=== PATIENT | female | born 1980 | race Caucasian/White ===

== ENCOUNTER 2022-06-28 07:25 | Emergency (ER) | payer BC | END 2022-06-28 08:55 | disposition home or self-care (01) | LOC: DL.ED 07:25 | DX: S93.402A Sprain of unspecified ligament of left ankle, initial encounter (principal); F17.210 Nicotine dependence, cigarettes, uncomplicated; X50.1XXA Overexertion from prolonged static or awkward postures, initial encounter | CPT/HCPCS: 73610-LT; 99282; 99283 ==

== ENCOUNTER 2022-09-14 06:16 | Emergency (ER) | payer BC ==
[2022-09-14] MEDS: Ondansetron 4 MG/2 ML SDV IVPUSH ONE (06:44)
[2022-09-14] MEDS: Aspirin 81 MG Tab.Chew PO ONE (06:46)
[2022-09-14] MEDS: Nitroglycerin 0.4 MG Tab.SL SL ONE (06:47)
[2022-09-14] MEDS: Sodium Chloride 0.9% 1,000 ML IV ONE (06:48)
[2022-09-14 07:00] LABS: ANION GAP 15.4 mEq/L (7-13)
[2022-09-14] MEDS: Heparin Sodium/0.45% NaCl 25,000 UNITS/500 ML BAG IV SCH (07:17)
[2022-09-14] MEDS: Heparin Sodium 5,000 Units/ML Vial IVPUSH ONE (07:17)
== END 2022-09-14 08:30 ==
LOC: DL.ED 06:16
DX: I21.4 Non-ST elevation (NSTEMI) myocardial infarction (principal); Z79.899 Other long term (current) drug therapy; Z20.822 Contact with and (suspected) exposure to COVID-19
CPT/HCPCS: 36415; 71045; 80053; 82150; 83690; 83735; 84484; 85025; 85379; 85610; 87635; 93005; 96361; 96365; 96375; 96376; 99285; A9270; J1644; J2405; J7030; U0002

== ENCOUNTER 2022-09-16 07:16 | Emergency (ER) | payer BC | END 2022-09-16 08:33 | disposition home or self-care (01) | LOC: DL.ED 07:16 | DX: N39.0 Urinary tract infection, site not specified (principal); F17.210 Nicotine dependence, cigarettes, uncomplicated; Z79.899 Other long term (current) drug therapy | CPT/HCPCS: 74176; 81001; 87086; 87088; 87186; 99284 ==

== ENCOUNTER 2022-09-18 09:12 | Emergency (ER) | payer BC ==
[2022-09-18 10:47] LABS: ANION GAP 14.5 mEq/L (7-13); CHLORIDE,CL 104 mmol/L (98-107); SODIUM,NA 138 mmol/L (136-145)
[2022-09-18 10:48] LABS: ESTIMATED GFR 92 mL/min (>=60)
== END 2022-09-18 12:22 | disposition home or self-care (01) ==
LOC: DL.ED 09:12
DX: K83.9 Disease of biliary tract, unspecified (principal); F17.210 Nicotine dependence, cigarettes, uncomplicated; Z91.040 Latex allergy status; Z88.8 Allergy status to other drugs, medicaments and biological substances; Z79.899 Other long term (current) drug therapy; Z20.822 Contact with and (suspected) exposure to COVID-19
CPT/HCPCS: 36415; 74019; 80053; 80307; 82150; 83605; 83690; 83735; 84484; 84703; 85025; 86140; 93005; 99284; U0002

== ENCOUNTER 2022-09-21 13:40 | Emergency (ER) | payer BC ==
[2022-09-21] MEDS ORDERED: Acetaminophen/HYDROcodone 325-10 MG Tab PO ONE (13:41)
[2022-09-21] MEDS ORDERED: Ondansetron 4 MG Tab.DIS PO ONE (13:41)
[2022-09-21] MEDS ORDERED: Sodium Chloride 0.9% 10 ML Syringe FLUSH PRN (15:55)
[2022-09-21] MEDS: Sodium Chloride 0.9% 1,000 ML IV ONE (16:08)
[2022-09-21] MEDS: Ondansetron 4 MG/2 ML SDV IV ONE (16:09)
[2022-09-21] MEDS: HYDROmorphone 1 MG/ML Syringe IVPUSH ONE (16:10)
[2022-09-21] MEDS: Famotidine 20 MG/2 ML SDV IVPUSH ONE (16:21)
[2022-09-21 16:45] LABS: ANION GAP 13.5 mEq/L (7-13)
[2022-09-21] MEDS ORDERED: Acetaminophen/HYDROcodone 325-10 MG Tab ONE (18:26)
[2022-09-21] MEDS ORDERED: Ondansetron 4 MG Tab.DIS ONE (18:26)
== END 2022-09-21 18:45 | disposition home or self-care (01) ==
LOC: DL.ED 13:40
DX: K80.50 Calculus of bile duct without cholangitis or cholecystitis without obstruction (principal); Z88.8 Allergy status to other drugs, medicaments and biological substances; Z91.040 Latex allergy status; Z79.899 Other long term (current) drug therapy
CPT/HCPCS: 36415; 80053; 82150; 83605; 83690; 84484; 85025; 96361; 96374; 96375; 99284; A9270; J1170; J2405; J3490; J7030

== ENCOUNTER 2022-10-16 06:00 | Emergency (ER) | payer BC ==
[2022-10-16] MEDS ORDERED: Ketorolac 10 MG Tab PO ONE (06:01)
[2022-10-16] MEDS ORDERED: Ondansetron 4 MG Tab.DIS PO ONE (06:01)
[2022-10-16] MEDS ORDERED: Ondansetron 4 MG/2 ML SDV IVPUSH ONE (06:19)
[2022-10-16] MEDS ORDERED: HYDROmorphone 1 MG/ML Syringe IVPUSH ONE (06:19)
[2022-10-16 06:52] LABS: ANION GAP 17.5 mEq/L (7-13); CHLORIDE,CL 102 mmol/L (98-107); SODIUM,NA 137 mmol/L (136-145)
[2022-10-16 06:53] LABS: ESTIMATED GFR 86 mL/min (>=60)
[2022-10-16] MEDS ORDERED: Ketorolac 30 MG/ML SDV IVPUSH ONE (07:01)
[2022-10-16] MEDS ORDERED: Ondansetron 4 MG Tab.DIS ONE (07:15)
[2022-10-16] MEDS ORDERED: Ketorolac 10 MG Tab ONE (07:16)
== END 2022-10-16 07:32 | disposition home or self-care (01) ==
LOC: DL.ED 06:00
DX: K80.50 Calculus of bile duct without cholangitis or cholecystitis without obstruction (principal); Z91.040 Latex allergy status; Z88.8 Allergy status to other drugs, medicaments and biological substances
CPT/HCPCS: 36415; 80053; 85025; 96374; 96375; 99284; A9270; J1170; J1885; J2405

== ENCOUNTER 2022-10-25 04:11 | Emergency (ER) | payer BC ==
[2022-10-25] MEDS ORDERED: Sodium Chloride 0.9% 1,000 ML IV ONE (04:34)
[2022-10-25] MEDS ORDERED: Butorphanol 2 MG/ML SDV IVPUSH ONE (04:34)
[2022-10-25] MEDS ORDERED: Sodium Chloride 0.9% 10 ML Syringe FLUSH PRN (04:34)
[2022-10-25 05:05] LABS: ANION GAP 13.5 mEq/L (7-13)
[2022-10-25] MEDS ORDERED: Cephalexin 500 MG Cap PO ONE (06:39)
== END 2022-10-25 07:00 | disposition home or self-care (01) ==
LOC: DL.ED 04:11
DX: K80.50 Calculus of bile duct without cholangitis or cholecystitis without obstruction (principal); N39.0 Urinary tract infection, site not specified; Z91.040 Latex allergy status; Z79.899 Other long term (current) drug therapy
CPT/HCPCS: 36415; 80053; 81001; 83690; 85025; 87086; 87088; 87186; 96361; 96374; 99284; A9270; J0595; J3490; J7030

== ENCOUNTER 2022-10-25 13:36 | Emergency (ER) | payer BC ==
[2022-10-25] MEDS ORDERED: HYDROmorphone 1 MG/ML Syringe IM ONE (14:00)
[2022-10-25] MEDS ORDERED: Ondansetron 4 MG Tab.DIS PO ONE ×2 (14:08)
[2022-10-25 14:45] LABS: ANION GAP 16.7 mEq/L (7-13)
[2022-10-25] MEDS ORDERED: Sodium Chloride 0.9% 1,000 ML IV ONE (15:02)
[2022-10-25] MEDS ORDERED: HYDROmorphone 1 MG/ML Syringe IVPUSH ONE ×2 (15:03→16:31)
[2022-10-25] MEDS ORDERED: Sodium Chloride 0.9% 10 ML Syringe FLUSH PRN (15:03)
[2022-10-25] MEDS ORDERED: Iopamidol 612 MG/ML 100 ML Bottle IVPUSH ONE (15:03)
[2022-10-25] MEDS ORDERED: Famotidine 20 MG/2 ML SDV IVPUSH ONE (15:03)
[2022-10-25] MEDS ORDERED: Ondansetron 4 MG/2 ML SDV IV ONE (16:31)
== END 2022-10-25 16:39 ==
LOC: DL.ED 13:36
DX: K81.0 Acute cholecystitis (principal); K80.00 Calculus of gallbladder with acute cholecystitis without obstruction; Z91.040 Latex allergy status; Z88.2 Allergy status to sulfonamides; Z79.899 Other long term (current) drug therapy
CPT/HCPCS: 36415; 74177; 80053; 83605; 83690; 85025; 96361; 96372; 96374; 96375; 99285; A9270; J1170; J3490; J7030; Q9967

== ENCOUNTER 2024-10-11 12:55 | Emergency (ER) | payer BC ==
[2024-10-11] MEDS: Ondansetron 4 MG Tab.DIS PO ONE (13:18)
[2024-10-11] MEDS: Albuterol/Ipratropium 3.0-0.5 MG/3 ML Neb Soln NEB ONE (13:55)
[2024-10-11] MEDS: cefTRIAXone 1 GM Vial IVPUSH ONE (13:55)
[2024-10-11] MEDS: Sodium Chloride 0.9% 1,000 ML IV ONE (13:55)
[2024-10-11] MEDS: Azithromycin 250 MG Tab PO ONE (13:55)
[2024-10-11 13:57] LABS: BASOPHILS PERCENT AUTO 0.1 % (0.0-1.0); EOSINOPHILS PERCENT AUTO 0.6 % (1.0-3.0); HEMATOCRIT 44.3 % (37.0-47.0); HEMOGLOBIN 15.3 g/dL (12.0-16.0); LYMPHOCYTES PERCENT AUTO 6.7 % (20.5-50.1); MEAN CORPUSCULAR HGB CONC 34.5 g/dL (33.0-35.0); MEAN CORPUSCULAR VOLUME 89.7 fL (80-100); MONOCYTES PERCENT AUTO 5.6 % (2-8); PLATELET COUNT,PLT 271 10^3/uL (150-450); RED BLOOD CELL COUNT 4.94 10^6/uL (4.2-5.4); WHITE BLOOD CELL COUNT,WBC 21.6 10^3/uL (5.0-10.0)
[2024-10-11 14:16] LABS: A/G RATIO 0.74; ALBUMIN 3.1 g/dL (3.4-5.0); ANION GAP 13.8 mEq/L (7-13); BILIRUBIN TOTAL 1.2 mg/dL (0.2-1.0); BUN/CREATININE RATIO 7.5 (No establ ref range); CALCIUM 8.9 mg/dL (8.5-10.1); CREATININE 0.93 mg/dL (0.55-1.02); EST CRCL DRUG DOSING (CG) 80.67 mL/min; POTASSIUM,K 2.8 mmol/L (3.5-5.1); PROTEIN TOTAL,TP 7.3 g/dL (6.4-8.2)
[2024-10-11 14:19] LABS: LACTIC ACID 1.9 mmol/L (0.4-2.0)
[2024-10-11] MEDS: Potassium Chloride 10 MEQ Tab.ER PO ONE (15:06)
== END 2024-10-11 15:02 | disposition home or self-care (01) ==
LOC: DL.ED 12:55
DX: J18.9 Pneumonia, unspecified organism (principal); D72.829 Elevated white blood cell count, unspecified; F17.210 Nicotine dependence, cigarettes, uncomplicated; Z91.040 Latex allergy status; Z88.8 Allergy status to other drugs, medicaments and biological substances; Z79.899 Other long term (current) drug therapy
CPT/HCPCS: 36415; 71045; 80053; 83605; 85025; 87428-QW; 96361; 96374; 99284-25; A9270-GY; J0696; J7030; J7620-GY

== ENCOUNTER 2024-10-16 06:32 | Inpatient (IN) | payer BC ==
[2024-10-16] MEDS: Ondansetron 4 MG/2 ML SDV IVPUSH ONE (07:55)
[2024-10-16] MEDS: Sodium Chloride 0.9% 1,000 ML IV ONE ×4 (07:55→12:29)
[2024-10-16 07:59] LABS: HEMATOCRIT 42.6 % (37.0-47.0); HEMOGLOBIN 14.4 g/dL (12.0-16.0); MEAN CORPUSCULAR HEMOGLOBIN 30.8 pg (27.0-34.0); MEAN CORPUSCULAR HGB CONC 33.8 g/dL (33.0-35.0); MEAN CORPUSCULAR VOLUME 91.2 fL (80-100); PLATELET COUNT,PLT 410 10^3/uL (150-450); RED BLOOD CELL COUNT 4.67 10^6/uL (4.2-5.4); WHITE BLOOD CELL COUNT,WBC 30.9 10^3/uL (5.0-10.0)
[2024-10-16 08:03] LABS: BASOPHILS PERCENT AUTO 0.1 % (0.0-1.0); EOSINOPHILS PERCENT AUTO 0.6 % (1.0-3.0); LYMPHOCYTES PERCENT AUTO 5.2 % (20.5-50.1); MONOCYTES PERCENT AUTO 3.5 % (2-8); NEUTROPHILS PERCENT AUTO 90.6 % (42.2-75.2)
[2024-10-16 08:08] LABS: APPEARANCE,URINE CLEAR (CLEAR); BILIRUBIN,URINE NEGATIVE (NEGATIVE); COLOR,URINE YELLOW (YELLOW); GLUCOSE,URINE NEGATIVE (NEGATIVE); KETONES,URINE NEGATIVE (NEGATIVE); LEUKOCYTE ESTERASE,URINE SMALL (NEGATIVE); NITRITE,URINE NEGATIVE (NEGATIVE); OCCULT BLOOD,URINE TRACE-INTACT (NEGATIVE); PH,URINE 5.5 (5.0-9.0); PROTEIN,URINE NEGATIVE (NEGATIVE); UROBILINOGEN,URINE 0.2 mg/dL (0.2-1.0)
[2024-10-16] MEDS: Ketorolac 30 MG/ML SDV IVPUSH ONE (08:17)
[2024-10-16 08:20] LABS: ALBUMIN 3.3 g/dL (3.4-5.0); ANION GAP 17.7 mEq/L (7-13); BILIRUBIN TOTAL 0.5 mg/dL (0.2-1.0); CALCIUM 8.7 mg/dL (8.5-10.1); CREATININE 0.89 mg/dL (0.55-1.02); EST CRCL DRUG DOSING (CG) 84.3 mL/min; MAGNESIUM 1.3 mg/dL (1.8-2.4); PROTEIN TOTAL,TP 7.4 g/dL (6.4-8.2)
[2024-10-16 08:21] LABS: AMPHETAMINES,URINE NEGATIVE (NEGATIVE); BARBITURATES,URINE NEGATIVE (NEGATIVE); BENZODIAZEPINE,URINE NEGATIVE (NEGATIVE); MDMA (ECSTASY), URINE NEGATIVE (NEGATIVE); METHADONE,URINE NEGATIVE (NEGATIVE); METHAMPHETAMINES,URINE NEGATIVE (NEGATIVE); OPIATES,URINE NEGATIVE (NEGATIVE); OXYCODONE,URINE NEGATIVE (NEGATIVE); PHENCYCLIDINE,URINE NEGATIVE (NEGATIVE); TCA,URINE NEGATIVE (NEGATIVE)
[2024-10-16 08:26] LABS: LACTIC ACID 4.9 mmol/L (0.4-2.0)
[2024-10-16 08:37] LABS: A/G RATIO 0.8
[2024-10-16 08:38] LABS: POTASSIUM,K 2.7 mmol/L (3.5-5.1)
[2024-10-16 08:45] LABS: BACTERIA,URINE MODERATE /HPF (0-FEW/HPF); EPITHELIAL CELLS,URINE FEW /HPF (NOT SEEN); RBC,URINE 0-5 /HPF (0-5); TRICHOMONAS,URINE PRESENT /HPF (NOT SEEN)
[2024-10-16] MEDS: Potassium Chloride 10 MEQ Tab.ER PO ONE (08:45)
[2024-10-16] MEDS: Magnesium Sulfate/Water Premix 2 GM in Premix Bag 1 BAG IV ONE (08:46)
[2024-10-16 08:50] LABS: BAND PERCENT MAN 5 %; EOSINOPHILS PERCENT MAN 1 % (1-3); LYMPHOCYTES PERCENT MAN 7 % (20-50); MONOCYTES PERCENT MAN 3 % (2-8); SEG NEUTROPHILS PERCENT MAN 84 % (42-75)
[2024-10-16] MEDS: Iopamidol 612 MG/ML 100 ML Bottle IVPUSH ONE (09:01)
[2024-10-16] MEDS: Potassium Chloride 10 MEQ in Premix Bag 1 BAG IV ONE (09:48)
[2024-10-16] MEDS: metroNIDAZOLE 250 MG Tab PO ONE (09:52)
[2024-10-16] MEDS: Morphine 4 MG/ML Syringe IVPUSH ONE (09:52)
[2024-10-16] MEDS: cefTRIAXone 1 GM Vial IVPUSH ONE (09:52)
[2024-10-16] MEDS: Potassium Chloride 100 ML ONE (10:20)
[2024-10-16 14:04] LABS: LACTIC ACID 4.5 mmol/L (0.4-2.0)
[2024-10-16] MEDS ORDERED: Ondansetron 4 MG/2 ML SDV IVPUSH PRN (14:39)
[2024-10-16] MEDS ORDERED: Acetaminophen/oxyCODONE 325-5 MG Tab PO PRN (14:39)
[2024-10-16] MEDS ORDERED: Naloxone 2 MG/2 ML Syringe IVPUSH PRN (14:39)
[2024-10-16] MEDS ORDERED: Polyethylene Glycol 3350 Powder 17 GM Packet PO PRN (14:39)
[2024-10-16] MEDS ORDERED: Bisacodyl 5 MG Tab PO PRN (14:39)
[2024-10-16] MEDS ORDERED: Magnesium Hydroxide 400 MG/5 ML Susp 30 ML Cup PO PRN (14:39)
[2024-10-16] MEDS ORDERED: Docusate Sodium 100 MG Cap PO PRN (14:39)
[2024-10-16] MEDS ORDERED: Albuterol/Ipratropium 3.0-0.5 MG/3 ML Neb Soln NEB PRN (14:39)
[2024-10-16] MEDS ORDERED: hydrOXYzine HCl 25 MG Tab PO PRN (15:12)
[2024-10-16 15:14] LABS: C-REACTIVE PROTEIN 0.66 ng/dL (<=0.50)
[2024-10-16] MEDS ORDERED: Loperamide 2 MG Cap PO PRN (15:42)
[2024-10-16] MEDS ORDERED: Acetaminophen/Butalbital/Caffeine 325-50-40 MG Tab PO PRN (15:42)
[2024-10-16 16:04] LABS: HCG QUALITATIVE,SERUM NEGATIVE (NEGATIVE)
[2024-10-16] MEDS: Ampicillin/Sulbactam Na 1.5 GM in Sodium Chloride 0.9% 100 ML IV SCH (16:29)
[2024-10-16 16:32] LABS: HEMOGLOBIN A1C 5.4 % (<5.7)
[2024-10-16] MEDS: VANCOmycin 1.75 GM/350 ML 1.75 GM in Premix Bag 1 BAG IV ONE (16:40)
[2024-10-16] MEDS: Sodium Chloride 0.9% 1,000 ML IV SCH (20:03)
[2024-10-16] MEDS: Saccharomyces Boulardii (Probiotic) 250 MG Cap PO SCH (20:04)
[2024-10-16] MEDS: metroNIDAZOLE 250 MG Tab PO SCH (20:04)
[2024-10-16] MEDS: guaiFENesin 600 MG Tab.ER PO SCH (20:04)
[2024-10-16] MEDS: Temazepam 15 MG Cap PO PRN (20:04)
[2024-10-16] MEDS: Acetaminophen 325 MG Tab PO PRN (20:08)
[2024-10-17] MEDS: Morphine 2 MG/ML SYRINGE IVPUSH PRN (00:11)
[2024-10-17] MEDS: VANCOmycin 1 GM in Sodium Chloride 0.9% 250 ML IV SCH (02:00)
[2024-10-17] MEDS: Magnesium Sulfate/Water Premix 2 GM in Premix Bag 1 BAG IV ONE (04:39)
[2024-10-17 06:14] LABS: HEMATOCRIT 36.4 % (37.0-47.0); HEMOGLOBIN 12.2 g/dL (12.0-16.0); MEAN CORPUSCULAR HEMOGLOBIN 30.9 pg (27.0-34.0); MEAN CORPUSCULAR HGB CONC 33.5 g/dL (33.0-35.0); MEAN CORPUSCULAR VOLUME 92.2 fL (80-100); PLATELET COUNT,PLT 299 10^3/uL (150-450); RED BLOOD CELL COUNT 3.95 10^6/uL (4.2-5.4); WHITE BLOOD CELL COUNT,WBC 17.6 10^3/uL (5.0-10.0)
[2024-10-17 06:41] LABS: BASOPHILS PERCENT AUTO 0.2 % (0.0-1.0); EOSINOPHILS PERCENT AUTO 5.1 % (1.0-3.0); LYMPHOCYTES PERCENT AUTO 10.3 % (20.5-50.1); MONOCYTES PERCENT AUTO 5.4 % (2-8)
[2024-10-17 06:53] LABS: A/G RATIO 0.74; ALBUMIN 2.3 g/dL (3.4-5.0); ANION GAP 12.9 mEq/L (7-13); BILIRUBIN TOTAL 0.5 mg/dL (0.2-1.0); BUN/CREATININE RATIO 6.5 (No establ ref range); C-REACTIVE PROTEIN 7.46 ng/dL (<=0.50); CALCIUM 7.4 mg/dL (8.5-10.1); CREATININE 0.62 mg/dL (0.55-1.02); EST CRCL DRUG DOSING (CG) 121.01 mL/min; MAGNESIUM 2.1 mg/dL (1.8-2.4); POTASSIUM,K 2.9 mmol/L (3.5-5.1); PROTEIN TOTAL,TP 5.4 g/dL (6.4-8.2)
[2024-10-17 07:13] LABS: BAND PERCENT MAN 2 %; EOSINOPHILS PERCENT MAN 5 % (1-3); LYMPHOCYTES PERCENT MAN 13 % (20-50); MONOCYTES PERCENT MAN 6 % (2-8); SEG NEUTROPHILS PERCENT MAN 74 % (42-75)
[2024-10-17] MEDS: Potassium Chloride 10 MEQ Tab.ER PO SCH (09:31)
[2024-10-17] MEDS: VANCOmycin 1.75 GM/350 ML 350 ML IV SCH (15:11)
[2024-10-18 06:00] LABS: HEMATOCRIT 37.5 % (37.0-47.0); HEMOGLOBIN 12.6 g/dL (12.0-16.0); MEAN CORPUSCULAR HEMOGLOBIN 30.9 pg (27.0-34.0); MEAN CORPUSCULAR HGB CONC 33.6 g/dL (33.0-35.0); MEAN CORPUSCULAR VOLUME 91.9 fL (80-100); PLATELET COUNT,PLT 311 10^3/uL (150-450); RED BLOOD CELL COUNT 4.08 10^6/uL (4.2-5.4); WHITE BLOOD CELL COUNT,WBC 13.9 10^3/uL (5.0-10.0)
[2024-10-18 06:34] LABS: BASOPHILS PERCENT AUTO 0.2 % (0.0-1.0); EOSINOPHILS PERCENT AUTO 10.3 % (1.0-3.0); LYMPHOCYTES PERCENT AUTO 22.3 % (20.5-50.1); MONOCYTES PERCENT AUTO 6.2 % (2-8)
[2024-10-18 06:38] LABS: ALBUMIN 2.4 g/dL (3.4-5.0); ANION GAP 14.1 mEq/L (7-13); BILIRUBIN TOTAL 0.3 mg/dL (0.2-1.0); BUN/CREATININE RATIO 9.5 (No establ ref range); C-REACTIVE PROTEIN 5.67 ng/dL (<=0.50); CALCIUM 7.8 mg/dL (8.5-10.1); CREATININE 0.63 mg/dL (0.55-1.02); EST CRCL DRUG DOSING (CG) 119.09 mL/min; MAGNESIUM 1.9 mg/dL (1.8-2.4); POTASSIUM,K 3.1 mmol/L (3.5-5.1); PROTEIN TOTAL,TP 5.8 g/dL (6.4-8.2)
[2024-10-18 06:43] LABS: A/G RATIO 0.71
[2024-10-18 07:14] LABS: BAND PERCENT MAN 2 %; BASOPHILS PERCENT MAN 3; EOSINOPHILS PERCENT MAN 9 % (1-3); LYMPHOCYTES PERCENT MAN 27 % (20-50); MONOCYTES PERCENT MAN 3 % (2-8); SEG NEUTROPHILS PERCENT MAN 55 % (42-75)
[2024-10-18 07:15] LABS: GIANT PLATELETS FEW; MYELOCYTE PERCENT MAN 1; PLATELET COUNT ESTIMATE ADEQUATE
[2024-10-18 11:42] LABS: C.TRACHOMATIS BY TMA Negative (Negative); N.GONORRHOEAE BY TMA Negative (Negative); SOURCE URINE
[2024-10-18] MEDS ORDERED: Potassium Chloride 10 MEQ Tab.ER PO ONE (17:00)
== END 2024-10-18 11:50 | disposition home or self-care (01) | DRG 720 ==
LOC: DL.ED 06:32 → DL.MS 14:07
PROVIDERS: ADMIT Internal Medicine; ATTEND Internal Medicine
DX: A41.59 Other Gram-negative sepsis (principal); J18.9 Pneumonia, unspecified organism; N39.0 Urinary tract infection, site not specified; E87.20 Acidosis, unspecified; E66.9 Obesity, unspecified; J98.11 Atelectasis; A59.09 Other urogenital trichomoniasis; F41.9 Anxiety disorder, unspecified; F17.210 Nicotine dependence, cigarettes, uncomplicated; E87.6 Hypokalemia; R73.9 Hyperglycemia, unspecified; E83.42 Hypomagnesemia; E88.09 Other disorders of plasma-protein metabolism, not elsewhere classified; R82.71 Bacteriuria; R31.9 Hematuria, unspecified; Z87.820 Personal history of traumatic brain injury; Z79.899 Other long term (current) drug therapy; I25.2 Old myocardial infarction; Z88.8 Allergy status to other drugs, medicaments and biological substances; Z91.040 Latex allergy status; Z68.29 Body mass index [BMI] 29.0-29.9, adult
CPT/HCPCS: 36415; 71045; 74177; 80053; 80202; 80305-QW; 81001; 83036; 83605; 83690; 83735; 84145; 84484; 84703; 85025; 86140; 87086; 87088; 87186; 87428-QW; 87491; 87591; 93005; 96361; 96365; 96367; 96375; 99223; 99233; 99239; 99285; 99285-25; A9270-GY; J0295; J0696; J1885; J2270; J2405; J3372; J3475; J3480; J3490; J7030; J7050; Q9967

== ENCOUNTER 2025-06-22 19:00 | Emergency (ER) | payer BC ==
[2025-06-22] MEDS: Ketorolac 30 MG/ML SDV IVPUSH ONE (21:18)
[2025-06-22] MEDS: diphenhydrAMINE 50 MG/ML SDV IVPUSH ONE (21:24)
[2025-06-22] MEDS: Dexamethasone 4 MG/ML SDV IVPUSH ONE (21:24)
== END 2025-06-22 22:31 | disposition home or self-care (01) ==
LOC: DL.ED 19:00
DX: G43.909 Migraine, unspecified, not intractable, without status migrainosus (principal); F17.210 Nicotine dependence, cigarettes, uncomplicated; Z91.040 Latex allergy status; Z88.8 Allergy status to other drugs, medicaments and biological substances; Z79.899 Other long term (current) drug therapy; Z90.49 Acquired absence of other specified parts of digestive tract
CPT/HCPCS: 96361; 96374; 96375; 99283; J1100; J1200; J1885; J2765; J7030

== ENCOUNTER 2025-07-30 22:40 | Emergency (ER) | payer BC ==
[2025-07-30] MEDS: Ketorolac 30 MG/ML SDV IM ONE (22:53)
[2025-07-30 23:06] LABS: BASOPHILS PERCENT AUTO 0.5 % (0.0-1.0); EOSINOPHILS PERCENT AUTO 1.4 % (1.0-3.0); LYMPHOCYTES PERCENT AUTO 37.4 % (20.5-50.1); MONOCYTES PERCENT AUTO 7.2 % (2-8); NEUTROPHILS PERCENT AUTO 53.5 % (42.2-75.2); PLATELET COUNT,PLT 292 10^3/uL (150-450); RED BLOOD CELL COUNT 4.63 10^6/uL (4.2-5.4); WHITE BLOOD CELL COUNT,WBC 14.1 10^3/uL (5.0-10.0)
[2025-07-30 23:25] LABS: A/G RATIO 0.9; ALANINE AMINOTRANSFERASE,ALT 27.0 U/L (14-59); ASPARTATE AMNIOTRANSFERASE,AST 16.0 U/L (15-37); BILIRUBIN TOTAL 0.4 mg/dL (0.2-1.0); BLOOD UREA NITROGEN,BUN 12.0 mg/dL (7-18); CARBON DIOXIDE,CO2 23.0 mmol/L (21-32); CHLORIDE,CL 107.0 mmol/L (98-107); CREATININE 0.79 mg/dL (0.55-1.02); EST CRCL DRUG DOSING (CG) 94.97 mL/min; ESTIMATED GFR 95.0 mL/min (>=60); GLUCOSE RANDOM 110.0 mg/dL (70-99); POTASSIUM,K 3.5 mmol/L (3.5-5.1); PROTEIN TOTAL,TP 7.9 g/dL (6.4-8.2); SODIUM,NA 141.0 mmol/L (136-145)
[2025-07-31 00:14] LABS: APPEARANCE,URINE CLEAR (CLEAR); GLUCOSE,URINE NEGATIVE (NEGATIVE); OCCULT BLOOD,URINE MODERATE (NEGATIVE); SQUAMOUS EPITHELIAL CELLS,UR FEW /HPF (NOT SEEN)
[2025-07-31] MEDS: Take Home: Cyclobenzaprine 10 MG Tab, 4 Tab Pack PO ONE (01:22)
[2025-07-31] MEDS: Take Home: Acetaminophen/oxyCODONE 325-5 MG, 5 Tab Pack PO ONE (01:22)
== END 2025-07-31 01:25 | disposition home or self-care (01) ==
LOC: DL.ED 22:40
DX: M54.50 Low back pain, unspecified (principal); E83.42 Hypomagnesemia; Z91.040 Latex allergy status; Z88.8 Allergy status to other drugs, medicaments and biological substances; Z79.899 Other long term (current) drug therapy
CPT/HCPCS: 36415; 74176; 80053; 81001; 81025; 83735; 85025; 96372; 99284; A9270-GY; J1885

== ENCOUNTER 2025-08-10 18:12 | Emergency (ER) | payer BC ==
[2025-08-10] MEDS ORDERED: Sodium Chloride 0.9% 10 ML Syringe FLUSH PRN (18:55)
[2025-08-10 19:25] LABS: BASOPHILS PERCENT AUTO 0.2 % (0.0-1.0); EOSINOPHILS PERCENT AUTO 0.1 % (1.0-3.0); LYMPHOCYTES PERCENT AUTO 17.0 % (20.5-50.1); MONOCYTES PERCENT AUTO 5.4 % (2-8); NEUTROPHILS PERCENT AUTO 77.3 % (42.2-75.2); PLATELET COUNT,PLT 275 10^3/uL (150-450); RED BLOOD CELL COUNT 5.09 10^6/uL (4.2-5.4); WHITE BLOOD CELL COUNT,WBC 8.4 10^3/uL (5.0-10.0)
[2025-08-10] MEDS: Ketorolac 30 MG/ML SDV IVPUSH ONE (19:27)
[2025-08-10] MEDS: diphenhydrAMINE 50 MG/ML SDV IVPUSH ONE (19:28)
[2025-08-10 19:47] LABS: A/G RATIO 0.8; ALANINE AMINOTRANSFERASE,ALT 34 U/L (14-59); ASPARTATE AMNIOTRANSFERASE,AST 22 U/L (15-37); BILIRUBIN TOTAL 0.5 mg/dL (0.2-1.0); BLOOD UREA NITROGEN,BUN 6 mg/dL (7-18); CARBON DIOXIDE,CO2 22 mmol/L (21-32); CHLORIDE,CL 99 mmol/L (98-107); CREATININE 0.67 mg/dL (0.55-1.02); ESTIMATED GFR 110 mL/min (>=60); GLUCOSE RANDOM 101 mg/dL (70-99); POTASSIUM,K 3.6 mmol/L (3.5-5.1); PROTEIN TOTAL,TP 8.1 g/dL (6.4-8.2); SODIUM,NA 133 mmol/L (136-145)
[2025-08-10 20:04] LABS: LACTIC ACID 2.2 mmol/L (0.4-2.0)
[2025-08-10] MEDS: Take Home: Ondansetron 4 MG Tab.DIS, 5 Tab Pack PO ONE (20:56)
== END 2025-08-10 21:00 | disposition home or self-care (01) ==
LOC: DL.ED 18:12
DX: G43.909 Migraine, unspecified, not intractable, without status migrainosus (principal); Z88.8 Allergy status to other drugs, medicaments and biological substances; Z91.040 Latex allergy status; Z79.899 Other long term (current) drug therapy; Z90.49 Acquired absence of other specified parts of digestive tract
CPT/HCPCS: 36415; 80053; 83605; 83735; 85025; 96361; 96374; 96375; 99283; 99284; J1200; J1885; J2765; J7030; Q0162

== ENCOUNTER 2025-08-11 16:20 | Emergency (ER) | payer BC ==
[2025-08-11] MEDS ORDERED: Sodium Chloride 0.9% 10 ML Syringe FLUSH PRN (16:27)
[2025-08-11 16:59] LABS: BASOPHILS PERCENT AUTO 0.4 % (0.0-1.0); EOSINOPHILS PERCENT AUTO 0.3 % (1.0-3.0); LYMPHOCYTES PERCENT AUTO 24.1 % (20.5-50.1); MONOCYTES PERCENT AUTO 8.7 % (2-8); NEUTROPHILS PERCENT AUTO 66.5 % (42.2-75.2); PLATELET COUNT,PLT 215 10^3/uL (150-450); RED BLOOD CELL COUNT 4.93 10^6/uL (4.2-5.4); WHITE BLOOD CELL COUNT,WBC 7.8 10^3/uL (5.0-10.0)
[2025-08-11 17:15] LABS: INR 1.0 (0.9-1.2); PTT,PARTIAL THROMBOPLSTIN TIME 28.2 SEC (22.0-34.0)
[2025-08-11 17:18] LABS: ALANINE AMINOTRANSFERASE,ALT 35.0 U/L (14-59); ASPARTATE AMNIOTRANSFERASE,AST 40.0 U/L (15-37); BILIRUBIN TOTAL 0.6 mg/dL (0.2-1.0); BLOOD UREA NITROGEN,BUN 6.0 mg/dL (7-18); CARBON DIOXIDE,CO2 21.0 mmol/L (21-32); CREATININE 0.51 mg/dL (0.55-1.02); EST CRCL DRUG DOSING (CG) 147.11 mL/min; GLUCOSE RANDOM 145.0 mg/dL (70-99); PROTEIN TOTAL,TP 8.0 g/dL (6.4-8.2)
[2025-08-11 17:21] LABS: LACTIC ACID 1.5 mmol/L (0.4-2.0)
[2025-08-11 17:23] LABS: A/G RATIO 0.7; CHLORIDE,CL 99.0 mmol/L (98-107); ESTIMATED GFR 118.0 mL/min (>=60); POTASSIUM,K 4.4 mmol/L (3.5-5.1); SODIUM,NA 133.0 mmol/L (136-145)
[2025-08-11] MEDS: Ketorolac 30 MG/ML SDV IVPUSH ONE (17:52)
== END 2025-08-11 19:11 | disposition home or self-care (01) ==
LOC: DL.ED 16:20
DX: G44.209 Tension-type headache, unspecified, not intractable (principal); F17.200 Nicotine dependence, unspecified, uncomplicated; Z88.8 Allergy status to other drugs, medicaments and biological substances; Z91.040 Latex allergy status; Z79.899 Other long term (current) drug therapy; Z90.49 Acquired absence of other specified parts of digestive tract
CPT/HCPCS: 36415; 70450; 80053; 83605; 85025; 85610; 85730; 86140; 87040; 96374; 96375; 99283; 99284; A9270; J1885; J2765; J3360; J7030

== ENCOUNTER 2025-09-05 07:43 | Emergency (ER) | payer BC ==
[2025-09-05] MEDS ORDERED: Sodium Chloride 0.9% 10 ML Syringe FLUSH PRN (08:10)
[2025-09-05] MEDS: SUMAtriptan 6 MG/0.5 ML SDV SUBCUT ONE (08:26)
[2025-09-05] MEDS: Ketorolac 30 MG/ML SDV IVPUSH ONE (08:27)
[2025-09-05] MEDS: Dexamethasone 4 MG/ML SDV IVPUSH ONE (08:28)
[2025-09-05] MEDS: Ondansetron 4 MG/2 ML SDV IVPUSH ONE (08:28)
[2025-09-05] MEDS: diphenhydrAMINE 50 MG/ML SDV IVPUSH ONE (08:28)
== END 2025-09-05 09:26 | disposition home or self-care (01) ==
LOC: DL.ED 07:43
DX: G43.909 Migraine, unspecified, not intractable, without status migrainosus (principal); Z79.899 Other long term (current) drug therapy; Z88.8 Allergy status to other drugs, medicaments and biological substances; Z91.040 Latex allergy status; Z90.49 Acquired absence of other specified parts of digestive tract
CPT/HCPCS: 96361; 96374; 96375; 99283; J1100; J1200; J1885; J2405; J2765; J3030; J7030

== ENCOUNTER 2025-10-28 17:38 | Emergency (ER) | payer BC ==
[2025-10-28] MEDS: Lidocaine 2% with EPINEPHrine 1:200,000 20 ML SDV INJECT ONE (18:30)
== END 2025-10-28 19:12 | disposition home or self-care (01) ==
LOC: DL.ED 17:38
DX: G43.909 Migraine, unspecified, not intractable, without status migrainosus (principal); F17.200 Nicotine dependence, unspecified, uncomplicated; Z79.899 Other long term (current) drug therapy; Z88.8 Allergy status to other drugs, medicaments and biological substances; Z91.040 Latex allergy status
CPT/HCPCS: 64450; 99283; J2004; Q0169